=== PATIENT | female | born 1995 | race African-American/Black ===

== ENCOUNTER 2020-04-28 11:00 | Emergency (ER) | payer MEDICAID ==
[~2020-04-28] VITALS: Ht 172.7 cm; Wt 64.0 kg
[2020-04-28 11:03] VITALS: BP 116/82
== END 2020-04-28 11:49 | disposition left against medical advice (07) ==
LOC: ER 11:14
DX: N93.9 Abnormal uterine and vaginal bleeding, unspecified (principal); Z53.21 Procedure and treatment not carried out due to patient leaving prior to being seen by health care provider